=== PATIENT | female | born 1960 | race Caucasian/White ===

== ENCOUNTER 2019-06-16 05:00 | Day surgery (SDC) | payer MEDICARE, MEDICAID ==
[2019-06-12 10:24] LABS: BASOPHILS % (AUTO) 0.5 % (0-1); EOSINOPHILS # (AUTO) 0.1 X10'3 (0-0.9); EOSINOPHILS % (AUTO) 1.6 % (0-6); HEMATOCRIT 39.8 % (35.0-45.0); HEMOGLOBIN 13.6 g/dl (12.0-16.0); LYMPHOCYTES # (AUTO) 1.5 X10'3 (1.1-4.8); LYMPHOCYTES % (AUTO) 20.7 % (21-51); MEAN CORPUSCULAR HEMOGLOBIN 32.6 PG (27.0-31.0); MEAN CORPUSCULAR HGB CONC 34.1 g/dL (33.0-36.5); MEAN CORPUSCULAR VOLUME 95.5 FL (78-98); MEAN PLATELET VOLUME 9.4 FL (7.4-10.4); MONOCYTES # (AUTO) 0.4 X10'3 (0-0.9); NEUTROPHILS # (AUTO) 5.1 X10'3 (1.8-7.7); NEUTROPHILS % (AUTO) 71.2 % (42-75); PLATELET COUNT 158 X10'3 (140-440); RED BLOOD COUNT 4.17 X10'6 (4.20-5.60); RED CELL DISTRIBUTION WIDTH 13.2 % (11.5-14.5); WHITE BLOOD COUNT 7.1 X10'3 (4.5-11.0)
[2019-06-12 10:47] LABS: PARTIAL THROMBOPLASTIN TIME 28 SECONDS (22-32)
[2019-06-12 11:00] LABS: ALBUMIN 3.8 G/DL (3.4-5.0); ANION GAP 9 (8-16); BLOOD UREA NITROGEN 15 MG/DL (7-18); CALCIUM 9.4 MG/DL (8.5-10.1); CHLORIDE 107 MMOL/L (99-107); CREATININE 0.94 MG/DL (0.40-0.90); GLUCOSE 75 MG/DL (70-104); POTASSIUM 4.2 MMOL/L (3.5-5.1); SODIUM 145 MMOL/L (135-145); TOTAL CARBON DIOXIDE 29.4 MMOL/L (24-32); eGFR 61 ML/MIN
[2019-06-16] VITALS (13 sets, daily range): BP systolic 104–133; BP diastolic 60–78
[~2019-06-16] VITALS: Ht 167.6 cm; Wt 62.3 kg
[2019-06-16] MEDS ORDERED: LORazepam 0.5 MG tablet PO PRN (05:15)
[2019-06-16] MEDS ORDERED: normal saline 1,000 ML IV SCH (05:15)
[2019-06-16] MEDS ORDERED: diphenhydrAMINE 25mg capsule PO PRN (05:15)
[2019-06-16] MEDS ORDERED: LIDOcaine/PRILOcaine 5gm cream TP ONE (05:20)
[2019-06-16] MEDS ORDERED: POLY17PO10 PO (05:46)
[2019-06-16] MEDS ORDERED: OXYC-145 PO (05:46)
[2019-06-16] MEDS ORDERED: MELA5CAP (05:46)
[2019-06-16] MEDS ORDERED: SUMA50TA PO (05:46)
[2019-06-16] MEDS ORDERED: LYR25C PO (05:46)
[2019-06-16] MEDS ORDERED: ROSU20TA2 PO (05:46)
[2019-06-16] MEDS ORDERED: MAGN400C PO (05:46)
[2019-06-16] MEDS ORDERED: FLUT16SP10 (05:46)
[2019-06-16] MEDS ORDERED: marijuana (05:46)
[2019-06-16] MEDS ORDERED: ESOM40CA54 (05:46)
[2019-06-16] MEDS ORDERED: MULT-1085 PO (05:46)
[2019-06-16] MEDS ORDERED: ACYC400T PO (05:46)
[2019-06-16] MEDS ORDERED: DIPH-423 PO (05:46)
[2019-06-16] MEDS ORDERED: DULO-31 PO (05:46)
[2019-06-16] MEDS ORDERED: ASPI-611 PO (05:46)
[2019-06-16] MEDS ORDERED: CHOL200026 PO (05:46)
[2019-06-16] MEDS ORDERED: TIZA4CAP6 PO (05:46)
[2019-06-16] MEDS ORDERED: FLAX10007 PO (05:46)
[2019-06-16] MEDS ORDERED: LACT1CAP65 PO (05:46)
[2019-06-16] MEDS ORDERED: OXYB5TAB16 PO (05:46)
[2019-06-16] MEDS ORDERED: nitroGLYCERIN-Tridil 50MG/D5W 250 ML IV ONE (06:04)
[2019-06-16] MEDS ORDERED: verapamil 2.5 mg/ml inj IV ONE (06:04)
[2019-06-16] MEDS ORDERED: iohexol 350MG/ML 100ml bottle IV ONE (06:05)
[2019-06-16] MEDS ORDERED: LIDOcaine 1% (10mg/ml)w/preservative injection 20ml MDV ONE (06:05)
[2019-06-16] MEDS ORDERED: heparin 1,000unit/ml 10ml vial 10 ML ONE (06:05)
[2019-06-16] MEDS ORDERED: fentaNYL/PF 50MCG/1 ML 2ML syringe ONE (06:05)
[2019-06-16] MEDS ORDERED: midazolam 2 mg/2 ml injection ONE (06:05)
== END 2019-06-16 10:00 | disposition home or self-care (01) ==
LOC: SSTAY O 05:00
PROVIDERS: ATTEND Internal Medicine Interventional Cardiology
DX: R94.39 Abnormal result of other cardiovascular function study (principal); I25.10 Atherosclerotic heart disease of native coronary artery without angina pectoris; G47.33 Obstructive sleep apnea (adult) (pediatric); I10 Essential (primary) hypertension; E78.5 Hyperlipidemia, unspecified; Z79.899 Other long term (current) drug therapy; Z79.82 Long term (current) use of aspirin; Z88.5 Allergy status to narcotic agent
CPT/HCPCS: 36415; 80048; 85025; 85347; 85610; 85730; 93005; 93458; 99152; 99153; C1769; C1894; J1644; J2001; J2250; J3010; J7030; Q0163; Q9967; A4620; A5120; J3490

== ENCOUNTER 2019-07-18 10:34 | Emergency (ER) | payer MEDICARE, MEDICAID ==
[~2019-07-18] VITALS: Ht 167.6 cm; Wt 63.6 kg
[~2019-07-18 10:34] MED LIST: ACYC400T PO; ASPI-611 PO; CHOL200026 PO; DIPH-423 PO; DULO-31 PO; ESOM40CA54; FLAX10007 PO; FLUT16SP10; LACT1CAP65 PO; LYR25C PO; MAGN400C PO; MELA5CAP; MULT-1085 PO; OXYB5TAB16 PO; OXYC-145 PO; POLY17PO10 PO; ROSU20TA2 PO; SUMA50TA PO; TIZA4CAP6 PO; marijuana
[2019-07-18 10:36] VITALS: BP 114/81
[2019-07-18] MEDS ORDERED: SULF1TAB49 PO (11:15)
[2019-07-18] MEDS ORDERED: sulfamethoxazole/trimethoprim DS (800/160mg) tablet PO ONE (11:15)
[2019-07-18] MEDS ORDERED: TETanus/Pertussis (Acell)/Diphther VAC/PF (Tdap-Adult) 0.5ml syringe IMVAC ONE (11:25)
== END 2019-07-18 11:41 | disposition home or self-care (01) ==
LOC: ER 10:34
DX: L02.01 Cutaneous abscess of face (principal); D22.39 Melanocytic nevi of other parts of face; Z88.5 Allergy status to narcotic agent; Z79.82 Long term (current) use of aspirin; Z79.899 Other long term (current) drug therapy
CPT/HCPCS: 90471; 90715; 99283